=== PATIENT | male | born 1965 | race African-American/Black ===

== ENCOUNTER 2024-10-05 16:41 | Emergency (ER) | payer OTHER ==
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
[2024-10-05] MEDS ORDERED: NA CHLORIDE 0.9% 1,000 ML ONE (17:16)
[2024-10-05 17:53] LABS: Absolute Eosinophils 0.3 K/uL (0-0.5); Absolute Lymphocytes (CBC) 4.5 K/uL (0.7-4.9); Absolute Monocytes 0.6 K/uL (0.1-1.3); Absolute Neutrophil 3.2 K/uL (1.8-8.0); Basophils % 0.4 % (0-1.3); Eosinophils % 3.7 % (0-4.4); Hematocrit 43.3 % (39.6-49.0); Hemoglobin 14.3 g/dL (13.6-17.9); Lymphocytes % 52.4 % (15.3-44.8); MCH 28.3 pg (27.0-35.0); MCV 85.7 fL (80-100); Monocytes % 6.6 % (3.3-12.3); Neutrophils % 36.9 % (41.7-73.7); Nucleated Red Blood Cells % 0.3 % (0-0); Platelets 200 thou/uL (152-406); RBC Red Blood Cell Count 5.05 M/uL (4.33-5.43); Red Cell Distribution Width 18.5 % (12.1-15.2)
[2024-10-05 18:05] LABS: PT Prothrombin Time 11.6 SECONDS (10.0-13.0); PTT, Activated Partial Thromb 33.3 SECONDS (24.3-36.9); Protime INR 1.02
[2024-10-05] MEDS ORDERED: METOPROLOL TARTRATE 5 MG/5 ML INJ IV ONE (18:11)
[2024-10-05] MEDS ORDERED: MAGNESIUM SULFATE 1 gm IVPB 1 GM/100 ML BAG IV ONE (18:11)
[2024-10-05 18:13] LABS: ALT/SGPT 24 U/L (16-61); AST/SGOT 28 U/L (15-37); Albumin 3.3 g/dL (3.4-5.0); Albumin/Globulin Ratio 0.7 (1.1-1.8); Alkaline Phosphatase 72 U/L (45-117); Anion Gap 11.6 mEq/L (5.0-15.0); BUN Blood Urea Nitrogen 14 mg/dL (7-18); Bicarbonate 24 mEq/L (21-32); Bilirubin Direct 0.2 mg/dL (0-0.2); Bilirubin Indirect, Calculated 0.2 mg/dL (0.2-0.8); Bilirubin Total 0.4 mg/dL (0.2-1.0); Globulin 4.5 g/dL (2.3-3.5); Glomerular Filtration Rate 69 ml/min (=/>90); Glucose Level 96 mg/dL (74-106); Potassium 3.6 mEq/L (3.5-5.1); Protein, Total 7.8 g/dL (6.4-8.2); Sodium Level 139 mEq/L (136-145)
--- NOTE | 2024-10-05 19:01 | EDPHYS ---
Physician Documentation [facility] Name: Santiago Griggs Age: 59 yrs Sex: Male : 1965 Arrival Date: 10/05/2024 Time: 16:41 Bed 17 Private MD: ED Physician Wilian Barakat HPI: 10/05 16:56 This 59 yrs old Male presents to ER via Unassigned with complaints of suicidal. ms3 16:56 59-year-old male with past medical history of hypertension, diabetes presents to the [facility] emergency department via [facility] crisis intervention team for suicidal ideation. Patient states he was going to shoot himself. Patient stated to the police that he wanted to get their guns and shoot himself. Patient endorses drinking wine today. Per the officer patient is from [place] and staying with a friend. Patient will be evicted on and patient is concerned of being homeless.. Historical: - Allergies: 17:06 PENICILLINS; ph - Home Meds: 10/06 10:59 Unable to obtain [Active]; jl7 - PMHx: 10/05 17:06 Diabetes mellitus; Hypertensive disorder; ph - Immunization history:: Adult Immunizations unknown. - Infectious Disease History:: Denies. - Social history:: Smoking status: Patient denies any tobacco usage or history of. Patient uses alcohol, on a daily basis. Patient/guardian denies using street drugs. ROS: 16:56 Constitutional: Negative for fever, and chills. Cardiovascular: Negative for chest ms3 pain, and palpitations. Respiratory: Negative for shortness of breath, cough, wheezing, and pleuritic chest pain, Abdomen/GI: Negative for abdominal pain, nausea, vomiting, diarrhea, and constipation, MS/Extremity: Negative for injury and deformity, 16:56 Psych: Positive for depression, suicidal ideation, Exam: 16:56 Constitutional: This is a well developed, well nourished patient who is awake, alert, ms3 and in no acute distress. Respiratory: Lungs have equal breath sounds bilaterally, clear to auscultation and percussion. No rales, rhonchi or wheezes noted. No increased work of breathing, no retractions or nasal flaring. Abdomen/GI: Soft, non-tender, with normal bowel sounds. No distension or tympany. No guarding or rebound. No evidence of tenderness throughout. Skin: Warm, dry with normal turgor. Normal color with no rashes, no lesions, and no evidence of cellulitis. 16:56 Cardiovascular: Rate: tachycardic, Rhythm: regular, Pulses: no pulse deficits are appreciated, 17:53 ECG was reviewed by the Attending Physician. ms3 Vital Signs: 17:02 BP 159 / 108; Pulse 140; Resp 18; Temp 97.8; Pulse Ox 99% on R/A; Weight 90.72 kg; ph Height 6 ft. 1 in. ; 18:10 BP 164 / 111; Pulse 136; Resp 18 S; Pulse Ox 100% on R/A; aa5 18:20 BP 155 / 111; Pulse 120; Resp 20 S; Pulse Ox 100% on R/A; aa5 18:34 BP 159 / 105; Pulse 95; Resp 18; Pulse Ox 98% ; ll1 18:59 Pulse 89; rn 19:47 BP 125 / 88; Pulse 95; Resp 14; Pulse Ox 96% ; Pain 0/10; cp4 21:00 BP 156 / 100; Pulse 87; Resp 17; Pulse Ox 98% ; cp4 23:00 BP 105 / 72; Pulse 86; Resp 18; Pulse Ox 100% ; cp4 03/04 00:20 BP 109 / 69; Pulse 85; Resp 18; Pulse Ox 99% ; cp4 01:04 BP 112 / 83; Pulse 78; Resp 18; Pulse Ox 98% ; cp4 02:30 BP 119 / 71; Pulse 83; Resp 18; Pulse Ox 99% ; cp4 03:30 BP 125 / 78; Pulse 78; Resp 18; Pulse Ox 98% ; cp4 04:30 BP 127 / 88; Pulse 77; Resp 18; Pulse Ox 100% ; cp4 05:30 BP 135 / 92; Pulse 75; Resp 18; Pulse Ox 100% ; cp4 08:00 BP 162 / 97; Pulse 117; Resp 15; Temp 97; Pulse Ox 100% ; jl7 10:30 BP 177 / 97; Pulse 120; Resp 15; Pulse Ox 100% ; jl7 10/05 17:02 Body Mass Index 26.39 (90.72 kg, 185.42 cm) ph 19:47 Pain Scale: Adult cp4 MDM: 10/05 16:46 Medical Screening Exam initiated sb4 16:56 Differential diagnosis: acute psychotic break, depression, Alcohol intoxication. ms3 18:00 Transition of care: After a detail discussion of the patient's case, care is ms3 transferred to Antwan Griffin MD. ED course: Patient signed out to Dr Griffin pending labs and psychiatric transfer. 19:00 Data reviewed: vital signs, nurses notes, lab test result(s), EKG, and as a result, I rn will admit patient. Consideration of Admission/Observation Patient was admitted/placed on observation. Escalation of care including admission/observation considered. Counseling: I had a detailed discussion with the patient and/or guardian regarding the historical points, exam findings, and any diagnostic results supporting the discharge/admit diagnosis, lab results, the need for further work-up and treatment in the hospital, the need to transfer to another facility. ED course: Patient signed out to me by Dr. Barakat, plan was to transfer for psychiatric facility evaluation due to suicidal ideation and depression.. 10/06 07:06 Transition of care: Care assumed from Teo Carmichael MD. ms3 07:37 ED course: On evaluation this morning patient is alert and orient x 4, in no apparent ms3 distress, nontoxic-appearing, speaking full sentences. Patient denies statements from yesterday of wanting to shoot himself. Patient is agreeable to seek help at this time. Attempting to obtain names and doses of patient's daily medication to resume his home meds.. 09:30 I considered the following discharge prescriptions or medication management in the [facility] emergency department Medications were administered in the Emergency Department. See MAR. Independent interpretation of the following test(s) in the Emergency Department EKG: See my EKG interpretation above. Historians other than the Patient: Law enforcement: [facility] CIT. 10:45 ED course: IVANNA present for transport. Discussed plan with patient and he understands/ ms3 agrees with plan. All questions answered. Patient is agreeable to transfer at this time.. 10/05 16:46 Order name: Acetaminophen; Complete Time: 18:30 sb4 10/05 16:46 Order name: Basic Metabolic Panel; Complete Time: 18:30 sb4 10/05 16:46 Order name: CBC with Diff; Complete Time: 18:30 sb4 10/05 16:46 Order name: ETOH Level; Complete Time: 18:30 sb4 10/05 16:46 Order name: Hepatic Function; Complete Time: 18:30 sb4 10/05 16:46 Order name: PT-INR; Complete Time: 18:30 sb4 10/05 16:46 Order name: Ptt, Activated; Complete Time: 18:30 sb4 10/05 16:46 Order name: Salicylate; Complete Time: 18:30 sb4 10/05 16:46 Order name: Urinalysis w/ reflexes; Complete Time: 22:03 sb4 10/05 16:46 Order name: Urine Drug Screen; Complete Time: 22:03 sb4 10/05 17:54 Order name: Troponin High Sensitivity; Complete Time: 22:03 ms3 10/06 06:05 Order name: ETOH Level; Complete Time: 07:17 rv1 10/05 16:46 Order name: EKG; Complete Time: 16:47 sb4 10/05 16:46 Order name: EKG - Nurse/Tech; Complete Time: 17:39 sb4 10/05 16:46 Order name: IV Saline Lock; Complete Time: 18:08 sb4 10/05 16:46 Order name: Labs collected and sent; Complete Time: 17:30 sb4 10/05 16:46 Order name: Suicide Precautions; Complete Time: 17:43 sb4 10/05 16:46 Order name: Suicide Screening ([place]); Complete Time: 17:43 sb4 10/05 17:50 Order name: Cardiac monitoring; Complete Time: 18:08 ms3 EC/03 17:53 Rate is 126 beats/min. Rhythm is irregularly irregular. QRS [place] is Normal. QRS ms3 interval is normal. Clinical impression: Atrial Fibrillation. Interpreted by me. Reviewed by me. Administered Medications: 18:10 Drug: NS 0.9% IV 1000 ml IV at 1000 ml once; to be given as a bolus over 60 minutes aa5 Route: IV; Rate: 1000 ml; Site: right antecubital; 19:10 Follow up: IV Status: Completed infusion jl7 18:10 Drug: Magnesium Sulfate IVPB 1 grams IVPB once over 1 hrs Route: IVPB; Infused Over: 1 aa5 hrs; Site: right antecubital; 21:21 Follow up: Response: No adverse reaction; IV Status: Completed infusion cp4 18:15 Drug: Metoprolol IVP 5 mg IVP every 5 minutes; Hold for SBP < 100 or HR < 60. x3 Route: aa5 IVP; Site: right antecubital; 18:20 Drug: Metoprolol IVP 5 mg IVP every 5 minutes; Hold for SBP < 100 or HR < 60. x3 Route: aa5 IVP; Site: right antecubital; 21:22 Follow up: Response: No adverse reaction cp4 19:17 Drug: Metoprolol PO 50 mg PO once Route: PO; cp4 21:21 Follow up: Response: No adverse reaction cp4 10/06 10:01 Drug: Metoprolol PO 100 mg PO once Route: PO; jl7 10:57 Follow up: Response: No adverse reaction jl7 Disposition Summary: 10/05/24 19:01 Transfer Ordered Notes: Transfer Location: Psych Facility rn Reason: Higher level of care rn Condition: Stable rn Problem: new rn Symptoms: are unchanged rn Accepting Physician: (10/06/24 11:00) jl7 Diagnosis - Suicidal ideations rn - Chronic atrial fibrillation 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 EDMS EDMS 16:47 16:46 BASIC METABOLIC PANEL+C.LAB.BRZ ordered. EDMS EDMS 16:47 16:46 CBC+H.LAB.BRZ ordered. EDMS EDMS 16:47 16:46 ETHANOL+C.LAB.BRZ ordered. EDMS EDMS 16:47 16:46 HEPATIC FUNCTION+C.LAB.BRZ ordered. EDMS EDMS 16:47 16:46 PROTIME (+INR)+COAG.LAB.BRZ ordered. EDMS EDMS 16:47 16:46 PTT, ACTIVATED+COAG.LAB.BRZ ordered. EDMS EDMS 16:47 16:47 SALICYLATE+C.LAB.BRZ ordered. EDMS EDMS 16:47 16:47 Urinalysis+U.LAB.BRZ ordered. EDMS EDMS 16:47 16:47 URINE DRUG SCREEN+UC.LAB.BRZ ordered. EDMS EDMS 17:05 16:56 59-year-old male with past medical history of hypertension, diabetes presents to ms3 the emergency department via [facility] crisis intervention team for suicidal ideation. Patient states he was going to shoot himself. Patient stated to the police that he wanted to get their guns and shoot himself. Patient endorses drinking wine today.. ms3 03 11:00 03/03 19:01 rn jl7
--- NOTE | 2024-10-05 19:01 | ER ---
Nurse's Notes [facility] Name: Santiago Griggs Age: 59 yrs Sex: Male : 1965 Arrival Date: 10/05/2024 Time: 16:41 Bed 17 Private MD: Diagnosis: Suicidal ideations;Chronic atrial fibrillation Presentation: 10/05 17:02 Chief complaint: Pt brought in by [facility] health deputy, states that he called the crisis line c/o SI, states that he plans to shoot himself in the head, reports recent job loss, multiple health diagnosis and may possible become homeless soon, also admits to drinking today. Coronavirus screen: Vaccine status: Patient reports being unvaccinated. Ebola Screen: No symptoms or risks identified at this time. Initial Sepsis Screen: Does the patient meet any 2 criteria? No. Patient's initial sepsis screen is negative. Does the patient have a suspected source of infection? No. Patient's initial sepsis screen is negative. Risk Assessment: Do you want to hurt yourself or someone else? Patient reports no desire to harm self or others. 17:02 Method Of Arrival: Law Enforcement: [facility] 17:02 Acuity: PILAR 2 ph Historical: - Allergies: 17:06 PENICILLINS; ph - Home Meds: 10/06 10:59 Unable to obtain [Active]; jl7 - PMHx: 10/05 17:06 Diabetes mellitus; Hypertensive disorder; ph - Immunization history:: Adult Immunizations unknown. - Infectious Disease History:: Denies. - Social history:: Smoking status: Patient denies any tobacco usage or history of. Patient uses alcohol, on a daily basis. Patient/guardian denies using street drugs. Screenin:27 [facility] ED Fall Risk Assessment (Adult) History of falling in the last 3 months, ll1 including since admission No falls in past 3 months (0 pts) Confusion or Disorientation No (0 pts) Intoxicated or Sedated Yes (3 pts) Impaired Gait Yes (1 pt) Mobility Assist Device Used Yes (1 pt) Altered Elimination No (0 pt) Score/Fall Risk Level 3 or more points = High Risk Oriented to surroundings, Maintained a safe environment, Hourly rounding (assess needs \\T\\ fall precautionary measures) done. Abuse screen: Denies threats or abuse. Nutritional screening: No deficits noted. Tuberculosis screening: No symptoms or risk factors identified. Assessment: 17:47 General: Appears uncomfortable, Behavior is cooperative, appropriate for age, ll1 talkative. General: told crisis hotline he was having SI. Neuro: No deficits noted. 18:25 Reassessment: No changes from previously documented assessment. Patient and/or family ll1 updated on plan of care and expected duration. Pain level reassessed. Patient is alert, oriented x 3, equal unlabored respirations, skin warm/dry/pink. 19:48 Reassessment: No changes from previously documented assessment. Patient and/or family cp4 updated on plan of care and expected duration. Pain level reassessed. Patient is alert, oriented x 3, equal unlabored respirations, skin warm/dry/pink. 21:21 Pain: Denies pain. cp4 21:21 Reassessment: Patient appears in no apparent distress at this time. Patient and/or cp4 family updated on plan of care and expected duration. Pain level reassessed. Patient is alert, oriented x 3, equal unlabored respirations, skin warm/dry/pink. 22:47 Reassessment: Patient appears in no apparent distress at this time. No changes from cp4 previously documented assessment. Patient is alert, oriented x 3, equal unlabored respirations, skin warm/dry/pink. 23:54 Reassessment: Patient appears in no apparent distress at this time. No changes from cp4 previously documented assessment. Patient and/or family updated on plan of care and expected duration. Pain level reassessed. 10/06 01:04 Reassessment: Patient appears in no apparent distress at this time. Patient and/or cp4 family updated on plan of care and expected duration. Pain level reassessed. Patient is alert, oriented x 3, equal unlabored respirations, skin warm/dry/pink. 02:31 Reassessment: Patient appears in no apparent distress at this time. Patient and/or cp4 family updated on plan of care and expected duration. Pain level reassessed. Patient is alert, oriented x 3, equal unlabored respirations, skin warm/dry/pink. 03:30 Reassessment: Patient appears in no apparent distress at this time. Patient and/or cp4 family updated on plan of care and expected duration. Pain level reassessed. Patient is alert, oriented x 3, equal unlabored respirations, skin warm/dry/pink. 04:30 Reassessment: Patient appears in no apparent distress at this time. Patient and/or cp4 family updated on plan of care and expected duration. Pain level reassessed. Patient is alert, oriented x 3, equal unlabored respirations, skin warm/dry/pink. 05:30 Reassessment: Patient appears in no apparent distress at this time. Patient and/or cp4 family updated on plan of care and expected duration. Pain level reassessed. Patient is alert, oriented x 3, equal unlabored respirations, skin warm/dry/pink. 07:00 Reassessment: Patient appears in no apparent distress at this time. Patient and/or jl7 family updated on plan of care and expected duration. Pain level reassessed. Patient is alert, oriented x 3, equal unlabored respirations, skin warm/dry/pink. Attempting to obtain home med list. 09:00 Reassessment: Patient appears in no apparent distress at this time. No changes from [facility] previously documented assessment. Patient and/or family updated on plan of care and expected duration. Pain level reassessed. Patient is alert, oriented x 3, equal unlabored respirations, skin warm/dry/pink. 09:45 Reassessment: Nurse to nurse with [facility] from [facility], jlLeyda accepted. 10:45 Reassessment: EMS at bedside to transport pt. mathieu Psych: 10/05 19:49 [place] Suicide Severity Screening: In the past month, have you wished you were cp4 or wished you could go to sleep and not wake up? Patient responds "No." "In the past month, have you actually had any thoughts of killing yourself?" Patient responds "no." "In your lifetime, have you ever done anything, started to do anything, or prepared to do anything to end your life?" Patient responds "no.". Subjective: Patient's mood is happy. Objective: Patient is cooperative, Speech is normal, Affect is appropriate. Interventions: Removed personal items and placed in bag. Patient placed in hospital gown. Searched person for dangerous items. Belonging list filled out. Safety Checks: Personal items have been removed. Patient uses 1 bottle of wine, daily. Commitment: Patient will be an involuntary commitment. Vital Signs: 17:02 BP 159 / 108; Pulse 140; Resp 18; Temp 97.8; Pulse Ox 99% on R/A; Weight 90.72 kg; ph Height 6 ft. 1 in. ; 18:10 BP 164 / 111; Pulse 136; Resp 18 S; Pulse Ox 100% on R/A; aa5 18:20 BP 155 / 111; Pulse 120; Resp 20 S; Pulse Ox 100% on R/A; aa5 18:34 BP 159 / 105; Pulse 95; Resp 18; Pulse Ox 98% ; ll1 18:59 Pulse 89; rn 19:47 BP 125 / 88; Pulse 95; Resp 14; Pulse Ox 96% ; Pain 0/10; cp4 21:00 BP 156 / 100; Pulse 87; Resp 17; Pulse Ox 98% ; cp4 23:00 BP 105 / 72; Pulse 86; Resp 18; Pulse Ox 100% ; cp4 03/04 00:20 BP 109 / 69; Pulse 85; Resp 18; Pulse Ox 99% ; cp4 01:04 BP 112 / 83; Pulse 78; Resp 18; Pulse Ox 98% ; cp4 02:30 BP 119 / 71; Pulse 83; Resp 18; Pulse Ox 99% ; cp4 03:30 BP 125 / 78; Pulse 78; Resp 18; Pulse Ox 98% ; cp4 04:30 BP 127 / 88; Pulse 77; Resp 18; Pulse Ox 100% ; cp4 05:30 BP 135 / 92; Pulse 75; Resp 18; Pulse Ox 100% ; cp4 08:00 BP 162 / 97; Pulse 117; Resp 15; Temp 97; Pulse Ox 100% ; jl7 10:30 BP 177 / 97; Pulse 120; Resp 15; Pulse Ox 100% ; jl7 03 17:02 Body Mass Index 26.39 (90.72 kg, 185.42 cm) ph 19:47 Pain Scale: Adult cp4 ED Course: 10/05 16:43 Patient arrived in ED. bd 16:46 Sonali Desir PA-C is PHCP. sb4 16:46 Antwan Griffin MD is Attending Physician. sb4 16:49 Wilian Barakat DO is Attending Physician. sb4 17:06 Triage completed. ph 17:08 Arm band placed on Patient placed in an exam room, on a stretcher. ph 17:13 Rubina Soni, RN is Primary Nurse. ph 17:30 Initial lab(s) drawn, by me, sent to lab. Missed attempt(s): 22 gauge in right forearm. ll1 Bleeding controlled, band aid applied, catheter tip intact. 17:59 Attending Physician role handed off by Wilian Barakat DO rn 17:59 Antwan Griffin MD is Attending Physician. rn 18:10 Inserted saline lock: 22 gauge in right antecubital area, using aseptic technique. ll1 Flushed with 10 mL NS. 18:27 Patient has correct armband on for positive identification. Bed in low position. ll1 Provided Education on: ER procedures and process. 20:14 Attending Physician role handed off by Antwan Griffin MD sp3 20:14 Teo Carmichael MD is Attending Physician. sp3 21:46 Urine Drug Screen Sent. vk 21:46 Urine collected: clean catch specimen, clear. vk [id number] 06:27 ETOH Level Sent. vk 06:27 Repeat lab(s) drawn. vk 07:07 Attending Physician role handed off by Teo Carmichael MD ms3 07:07 Wilian Barakat DO is Attending Physician. ms3 09:30 faxed chart to [facility]. bd 09:31 faxed chart to [facility]. bd 09:34 Primary Nurse role handed off by Rubina Soni RN ph 09:35 faxed chart to [facility]. bd 10:08 pt accepted in transfer to [facility] by dr Bobo, admin bd approval given by Genevieve Barger 10:56 Susan Orona, RN is Primary Nurse. jl7 10:58 No provider procedures requiring assistance completed. IV discontinued, intact, jl7 bleeding controlled, No redness/swelling at site. Pressure dressing applied. Administered Medications: 10/05 18:10 Drug: NS 0.9% IV 1000 ml IV at 1000 ml once; to be given as a bolus over 60 minutes aa5 Route: IV; Rate: 1000 ml; Site: right antecubital; 19:10 Follow up: IV Status: Completed infusion jl7 18:10 Drug: Magnesium Sulfate IVPB 1 grams IVPB once over 1 hrs Route: IVPB; Infused Over: 1 aa5 hrs; Site: right antecubital; 21:21 Follow up: Response: No adverse reaction; IV Status: Completed infusion cp4 18:15 Drug: Metoprolol IVP 5 mg IVP every 5 minutes; Hold for SBP < 100 or HR < 60. x3 Route: aa5 IVP; Site: right antecubital; 18:20 Drug: Metoprolol IVP 5 mg IVP every 5 minutes; Hold for SBP < 100 or HR < 60. x3 Route: aa5 IVP; Site: right antecubital; 21:22 Follow up: Response: No adverse reaction cp4 19:17 Drug: Metoprolol PO 50 mg PO once Route: PO; cp4 21:21 Follow up: Response: No adverse reaction cp4 10/06 10:01 Drug: Metoprolol PO 100 mg PO once Route: PO; jl7 10:57 Follow up: Response: No adverse reaction jl7 Medication: 10/05 18:27 VIS not applicable for this client. ll1 Outcome: 19:01 ER care complete, transfer ordered by MD. toro 10/06 10:45 Transferred by ground EMS Note: [facility] jl7 Condition: stable Discharge instructions given to patient, Instructed on the need for transfer, Demonstrated understanding of instructions, 11:00 Patient left the ED. jl7 Signatures: Salma Recinos Roman, MD MD rn Joseph, Josephine, RN RN aa5 Rubina Soni RN RN Susan Elena RN RN jl7 Georgette Dixon RN RN ll1 Wilian Barakat DO DO ms3 Teo Carmichael MD MD sp3 Sonali Desir, PA-C PA-C Lisa Saunders cp4 Katie Vazquez
[2024-10-05] MEDS ORDERED: METOPROLOL TAR 50 MG TAB ONE (19:09)
[2024-10-05 21:49] LABS: Specific Gravity 1.012 (1.005-1.030); Sqamous Epithelial <5 /HPF (None Seen); Urine Bacteria None Seen /HPF (<20); Urine Bilirubin NEGATIVE (Negative); Urine Blood Negative (Negative); Urine Clarity Turbid (Clear); Urine Color Light-Yellow (Yellow); Urine Crystals Unidentified Few /HPF (None Seen); Urine Culture Reflex Order NOT NEEDED; Urine Glucose NEGATIVE (Negative); Urine Ketones NEGATIVE (Negative); Urine Microscopic Reflex YN ORDER UMIC; Urine Mucus Slight /HPF (None Seen); Urine Nitrite NEGATIVE (Negative); Urine Protein NEGATIVE (Negative); Urine RBC <5 /HPF (None Seen); Urine Urobilinogen Normal (Normal); Urine WBC <5 /HPF (<5); Urine Yeast (Budding) Trace /HPF (None Seen)
[2024-10-05 21:59] LABS: Barbiturates NEGATIVE (NEGATIVE); Benzodiazepines NEGATIVE (NEGATIVE); Cocaine NEGATIVE (NEGATIVE); METHAMPHETAM NEGATIVE (NEGATIVE); Methadone NEGATIVE (NEGATIVE); Opiates NEGATIVE (NEGATIVE); Phencyclidine NEGATIVE (NEGATIVE); THC Cannibis NEGATIVE (NEGATIVE)
[2024-10-06] MEDS ORDERED: METOPROLOL XL 50 MG TAB PO ONE (09:38)
[2024-10-06 11:37] VITALS: O2SAT 100
[2024-10-06 11:40] VITALS: TEMP 97
[2024-10-06 11:41] VITALS: BP 177/97
--- NOTE | 2024-10-06 12:12 | EKG ---
Test Date: 2024-10-05 Test Time: 17:36:54 Design Printing Machine Setter: GUY MEASUREMENT RESULTS: Intervals: Rate: 126 ID: [id number] QT: 384 QTc: 556 [place]: P: ID: [id number] T: 94 INTERPRETIVE STATEMENTS: Atrial fibrillation with rapid ventricular response Right axis deviation Septal infarct, age undetermined Abnormal ECG No previous ECG available for comparison Electronically Signed On 10-06-24 12:10:42 CHARACTER IMPERSONATOR by Zeyad Rodriguez
== END 2024-10-06 11:00 ==
LOC: ER 16:41
DX: R45.851 Suicidal ideations (principal); I48.20 Chronic atrial fibrillation, unspecified; I10 Essential (primary) hypertension; E11.9 Type 2 diabetes mellitus without complications
CPT/HCPCS: 93005; 85025; 81001; 80048; 36415; 85610; 80076; 85730; 84484; 80307; 80143; 80179; 82077 ×2; J3475; J7030